=== PATIENT | male | born 1970 | race Caucasian/White ===

== ENCOUNTER 2022-04-01 18:41 | Emergency (ER) | payer OTHER, SELFPAY ==
[2022-04-01 19:06] VITALS: BP 144/73; PULSE 67; RESP 18; TEMP 36.4; O2SAT 98; BMI 29.4
--- NOTE | 2022-04-01 21:36 | CTR_ITS ---
PROCEDURE INFORMATION: Exam: CT Abdomen And Pelvis Without Contrast Exam date and time: 04/01/2022 11:15 PM Age: 51 years old Clinical indication: Abdominal pain; Left; Patient HX: C/O L flank pain; Additional info: Left flank pain TECHNIQUE: Imaging protocol: Computed tomography of the abdomen and pelvis without contrast. Radiation optimization: All CT scans at this facility use at least one of these dose optimization techniques: automated exposure control; mA and/or kV adjustment per patient size (includes targeted exams where dose is matched to clinical indication); or iterative reconstruction. COMPARISON: No relevant prior studies available. RADIATION DOSE METRICS: Total DLP (mGy-cm): 1214.26 FINDINGS: Liver: Normal. No mass. Gallbladder and bile ducts: Normal. No calcified stones. No ductal dilation. Pancreas: Normal. No ductal dilation. Spleen: Normal. No splenomegaly. Adrenal glands: Normal. No mass. Kidneys and ureters: Normal. No hydronephrosis. Stomach and bowel: Constipation. Appendix: No evidence of appendicitis. Intraperitoneal space: Unremarkable. No free air. No significant fluid collection. Vasculature: Unremarkable. No abdominal aortic aneurysm. Lymph nodes: Unremarkable. No enlarged lymph nodes. Urinary bladder: Unremarkable as visualized. Reproductive: Unremarkable as visualized. Bones/joints: Unremarkable. No acute fracture. Soft tissues: Unremarkable. CT/CT kidney stone [id number] IMPRESSION: Constipation, negative for acute inflammatory process in the abdomen or pelvis.
--- NOTE | 2022-04-01 21:38 | ED_ITS ---
HPI - Male Genitourinary General: Chief complaint: Urogenital-Male Stated complaint: low back pain Time Seen by Provider: 04/01/22 21:16 History of Present Illness: Patient is a 51-year-old male comes to the ED with left flank pain. Symptoms started 9 days ago. It started in his left lower back and pain has continued to progress. Pain has radiated now down into left lower quadrant of abdomen and left groin region. He rates the pain currently a 6 out of 10. Describes it as a deep aching pain. Denies any worsening or improving factors. Denies any dysuria, hematuria, fevers, bowel symptoms, nausea or vomiting. Denies any history of kidney stones. Associated symptoms: Deny dysuria, hematuria, nausea or vomiting Review of Systems Const: Denies: fever(s), chills or fatigue Eyes: Denies: change in vision or eye discomfort ENMT: Denies: throat pain, odynophagia, nasal discharge or nasal congestion Card: Denies: chest pain, palpitations, edema, swelling of feet/ankles, dy spnea on exertion or orthopnea Resp: Denies: dyspnea, productive cough or non-productive cough GI: Denies: abdominal pain, nausea, vomiting, diarrhea, constipation or hematochezia : Reports: flank pain (Left flank); Denies: difficulty urinating, dysuria or hematuria Musc: Reports: back pain; Denies: neck pain or extremity swelling Skin/Breast: Denies: rash or new lesions Neuro: Denies: headache(s), numbness in extremities or weakness in extremities [facility] ED PFSH: Medical History No pertinent family history Surgical History No pertinent past surgical history Physical Exam Const: COMMON NORMALS: patient oriented x3 and alert GENERAL APPEARANCE: cooperative HENMT: COMMON NORMALS: normocephalic HEAD & SCALP: normocephalic MOUTH: Normal oral and palatal mucosa present THROAT: posterior oropharynx normal an d uvula midline Neck/C-Spine: COMMON NORMALS: supple GENERAL: Yes normal visual inspection Resp: COMMON NORMALS: normal respiratory effort, No retractions, No use of accessory muscles and clear to auscultation bilaterally AUSCULTATION: clear to auscultation bilaterally Cardio: COMMON NORMALS: regular rate, regular rhythm, S1 normal heart sound present, S2 normal heart sound present, No gallops present (Cardio), No clicks present (Cardio), No murmurs present (Cardio) and Peripheral pulses 2+ throughout RATE: regular rate RHYTHM: regular rhythm HEART SOUNDS: S1 normal heart sound present and S2 normal heart sound present PERIPHERAL PULSES: Peripheral pulses 2+ throughout GI: COMMON NORMALS: Normal to inspection, nondistended, normoactive bowel sounds present, Soft to palpation, non-tender and no masses PALPATION: Yes Soft to palpation : BLADDER/KIDNEY EXAM: Yes CVA tenderness on the left Back/Pelvis: GENERAL BACK: Yes CVA tenderness Extremity: COMMON NORMALS: normal to inspection Neuro: COMMON NORMALS: patient oriented x3 and moves all extremities SENSORIUM/ORIENTATION: Yes alert Skin: GENERAL SKIN EXAM: dry skin Course Vital Signs: Vital signs: Vital Signs Temperature 97.9 F 04/02/22 00:55 Pulse Rate 68 04/02/22 00:55 Respiratory Rate 18 04/02/22 00:55 Blood Pressure 141/69 04/02/22 00:55 Pulse Oximetry 99 04/02/22 00:55 [facility] - Male Medical Decision Making Patient is a 51-year-old male comes to the ED with left flank pain. Symptoms started 9 days ago. It started in his left lower back and pain has continued to progress. Pain has radiated now down into left lower quadrant of abdomen and left groin region. He rates the pain currently a 6 out of 10. Describes it as a deep aching pain. Denies any worsening or improving factors. Denies any dysuria, hematuria, fevers, bowel symptoms, nausea or vomiting. Denies any history of kidney stones. Vitals are stable. Patient has some left CVA tenderness but the rest of exam is benign. Labs are unremarkable and UA showed no blood or signs of infection. CT of abdomen pelvis showed no acute findings. Patient was given a dose of Toradol and Norflex here in the ED. Patient diagnosed with musculoskeletal back pain and was discharged home with a prescription for Celebrex and a muscle relaxer. Return to ED precautions given. Follow-up with PCP in the next week for reevaluation. Patient understood and agreed with plan. Lab Data I reviewed the patient's lab results. : 04/01/22 21:25 04/01/22 21:25 Radiology Impressions Abdomen/Pelvis CT 04/01/22 21:36 IMPRESSION: Constipation, negative for acute inflammatory process in the abdomen or pelvis. Laboratory Results WBC 8.4 10^3/uL (4.0-10.0) 04/01/22 21:25 RBC 4.90 10^6/uL (4.1-5.3) 04/01/22 21: Hgb 15.9 g/dL (11.7-16.6) 04/01/22 21:25 Hct 47.8 % (42.0-52.0) 04/01/22 21: MCV 97.6 fl (80-94) H 04/01/22 21: MCH 32.4 pg (28.0-34.0) 04/01/22 21: MCHC 33.3 g/dL (30.0-36.0) 04/01/22: RDW 12.0 % (12.1-15.1) L 04/01/22: Plt Count 241 10^3/cmm (130-400) 04/01/22 21: MPV 10.1 fL (7.4-10.4) 04/01/22 21: Neut % (Auto) 63.9 % 04/01/22 21: Lymph % (Auto) 26.8 % 04/01/22 21:25 [place] % (Auto) 6.9 % 04/01/22 21: Eos % (Auto) 1.5 % 04/01/22: Baso % (Auto) 0.5 % 04/01/22: Neut # (Auto) 5.40 10^3/uL (1.8-7.7) 04/01/22 21: Lymph # (Auto) 2.3 10^3/uL (0.8-4.8) 04/01/22: [place] # (Auto) 0.6 10^3/uL (0.2-0.9) 04/01/22 21: Eos # (Auto) 0.1 10^3/uL (0.0-0.8) 04/01/22: Baso # (Auto) 0.0 10^3/uL (0.0-0.1) 04/01/22 21:25 Nucleated RBC % (auto) 0 % 04/01/22 21:25 Nucleated RBCs # 0.0 /100WBC 04/01/22 21:25 Sodium 141 mmol/L (136-145) 04/01/22 21:25 Potassium 4.0 mmol/L (3.5-5.1) 04/01/22 21:25 Chloride 102 mmol/L (98-107) 04/01/22 21:25 Carbon Dioxide 27 mmol/L (22-29) 04/01/22 21:25 Anion Gap 16.0 (5-19) 04/01/22 21:25 BUN 16 mg/dL (6-20) 04/01/22:25 Creatinine 1.0 mg/dL (0.7-1.2) 04/01/22 21:25 GFR Calculation 78.8 mL/min (90-130) L 04/01/22 21: Glucose 128 mg/dL (65-115) H 04/01/22 21:25 Calculated Osmolality 295 mOsm/kg (285-295) 04/01/22 21:25 Calcium 9.5 mg/dL (8.5-10.5) 04/01/22 21:25 Total Bilirubin 0.8 mg/dL (0.15-1.2) 04/01/22 21:25 AST 15 U/L (0-40) 04/01/22 21:25 ALT 15 U/L (0-41) 04/01/22 21:25 Alkaline Phosphatase 74 IU/L (40-130) 04/01/22 21:25 Total Protein 7.6 g/dL (6.6-8.7) 04/01/22 21:25 Albumin 4.9 g/dL (3.5-5.2) 04/01/22 21:25 Globulin 2.7 g/dL (1.3-4.6) 04/01/22 21: Lipase 30 U/L (13-60) 04/01/22 21:25 Urine Color Yellow (Yellow) 04/01/22 21:25 Urine Appearance Clear (CLEAR) 04/01/22 21:25 Urine pH 5 (5-7) 04/01/22 21:25 Ur Specific [place] 1.010 (1.005-1.030) 04/01/22 21:25 Urine Protein Neg (Negative) 04/01/22 21:25 Urine Glucose (UA) 4+ (Normal) H 04/01/22 21:25 Urine Ketones Negative (Negative) 04/01/22 21:25 Urine Blood Neg (Negative) 04/01/22 21:25 Urine Nitrate Negative (Negative) 04/01/22 21:25 Urine Bilirubin Neg (Negative) 04/01/22 21:25 Urine Urobilinogen Norm mg/dL (Negative) 04/01/22 21:25 Ur Leukocyte Esterase Negative (Negative) 04/01/22 21:25 Discharge Plan Discharge Patient Disposition: Home Clinical Impression: Musculoskeletal back pain Condition: Stable Prescriptions: New Celebrex 100 mg capsule 100 mg PO BID PRN (Reason: pain) Qty: 20 0RF cyclobenzaprine 10 mg tablet 10 mg PO BID PRN (Reason: back muscle spasm and pain) Qty: 20 0RF Discharge Orders: Discharge ED (Routine); Ordered 04/02/22 Ordered By: Ld De La Rosa Discharge Diet: Regular Discharge Activity: Increase activity as tolerated Patient Instructions: Musculoskeletal Pain (ED) Activity Restrictions/Additional Instructions: Follow-up with medical provider as directed in the next 5 to 7 days for reevaluation.Take medications as prescribed. Return to the ER or your medical provider if condition worsens. Please read and understand discharge instructions. Thank you for choosing [facility] for your healthcare needs today. Please realize this is an emergency room and that we are providing you with a medical screening exam and this may not be complete and all inclusive of all the testing and or work up that you may need to determine your ailment or severity of your illness. It is very important that you follow up as instructed or that you return to the Emergency Department should you have concerns or if your condition changes or worsens in any way. Coding Level of Care Code ED [employer] for Rayray Steele Exam Comprehensive
[2022-04-01 21:42] LABS: Basophils % 0.5 %; Eosinophils # 0.1 10^3/uL (0.0-0.8); Eosinophils % 1.5 %; Hematocrit 47.8 % (42.0-52.0); Hemoglobin 15.9 g/dL (11.7-16.6); Lymphocytes # 2.3 10^3/uL (0.8-4.8); Lymphocytes % 26.8 %; Mean Corpuscular HGB Conc 33.3 g/dL (30.0-36.0); Mean Corpuscular Hemoglobin 32.4 pg (28.0-34.0); Mean Corpuscular Volume 97.6 fl (80-94); Mean Platelet Volume 10.1 fL (7.4-10.4); Monocytes # 0.6 10^3/uL (0.2-0.9); Monocytes % 6.9 %; Neutrophils % 63.9 %; Nucleated Red Blood Cells % 0 %; Platelet Count 241 10^3/cmm (130-400); White Blood Count 8.4 10^3/uL (4.0-10.0)
[2022-04-01 21:58] VITALS: RESP 18; O2SAT 98
[2022-04-01] MEDS: morphine 4 mg/mL SDV 1 mL IVP (21:58)
[2022-04-01] MEDS: sodium chloride 0.9% 500 ML 999 ML IV (21:59)
[2022-04-01] MEDS: ondansetron 2 mg/ML SDV 2 mL 4 MG IVP (21:59)
[2022-04-01 22:02] LABS: Alanine Aminotransferase 15 U/L (0-41); Albumin Level 4.9 g/dL (3.5-5.2); Alkaline Phosphatase 74 IU/L (40-130); Aspartate Amino Transferase 15 U/L (0-40); Blood Urea Nitrogen 16 mg/dL (6-20); Calcium 9.5 mg/dL (8.5-10.5); Carbon Dioxide 27 mmol/L (22-29); Chloride 102 mmol/L (98-107); Globulin 2.7 g/dL (1.3-4.6); Glomerular Filtration Rate 78.8 mL/min (90-130); Glucose 128 mg/dL (65-115); Lipase 30 U/L (13-60); Osmolality Calculated 295 mOsm/kg (285-295); Sodium 141 mmol/L (136-145); Total Bilirubin 0.8 mg/dL (0.15-1.2); Total Protein 7.6 g/dL (6.6-8.7)
[2022-04-01 22:53] LABS: Add Urine Microscopic? NO; Charge for UA Resulting for Rev
[2022-04-01 22:56] LABS: Bilirubin Urine Neg (Negative); Blood Urine Neg (Negative); Glucose Urine UA 4+ (Normal); Ketones Urine Negative (Negative); Leukocyte Esterase Urine Negative (Negative); Nitrate Urine Negative (Negative); Protein Urine Neg (Negative); Urine Appearance Clear (CLEAR); Urine Color Yellow (Yellow); Urobilinogen Urine Norm (Negative); pH Urine 5 (5-7)
[2022-04-02] MEDS: ketorolac 30 mg/mL INJ IVP (00:45)
[2022-04-02] MEDS: orphenadrine 30 mg/mL Inj 2 mL 60 MG IVP (00:45)
[2022-04-02 00:55] VITALS: BP 141/69; PULSE 68; RESP 18; TEMP 36.6; O2SAT 99
== END 2022-04-02 00:56 | disposition home or self-care (01) ==
PROVIDERS: Emergency Provider Physician Assistant
DX: M54.9 Dorsalgia, unspecified (principal)
CPT/HCPCS: 74176; 80053; 81003; 83690; 85025; 96361; 96374; 96375; 99284; J1885; J2270; J2360; J2405; J7040